=== PATIENT | female | born 1950 | race Caucasian/White ===

== ENCOUNTER 2020-01-08 14:39 | Emergency (ER) | payer MEDICARE ==
[2020-01-08] MEDS ORDERED: Acetaminophen 500 MG TAB ONE (15:04)
[2020-01-08] MEDS ORDERED: Ibuprofen 400 MG TAB ONE (15:04)
--- NOTE | 2020-01-08 15:26 | RAD ---
LEFT HAND THREE VIEWS: HISTORY: Fall with hand pain and swelling. COMPARISON: None. FINDINGS: Three views of the left hand show no evidence of acute fracture or dislocation. No degenerative parr es are seen. Severe dorsal soft tissue swelling is seen. IMPRESSION: No evidence of acute osseous abnormality. POS: C
== END 2020-01-08 15:25 | disposition home or self-care (01) ==
LOC: MADERS 14:39
DX: S60.222A Contusion of left hand, initial encounter (principal); W01.198A Fall on same level from slipping, tripping and stumbling with subsequent striking against other object, initial encounter

== ENCOUNTER 2022-02-09 13:57 | Emergency (ER) | payer MEDICARE ==
[2022-02-09] MEDS ORDERED: Ciprofloxacin 500 MG TAB ONE (15:32)
== END 2022-02-09 15:58 | disposition home or self-care (01) ==
LOC: MADERS 13:57
DX: H70.91 Unspecified mastoiditis, right ear (principal); I10 Essential (primary) hypertension; R42 Dizziness and giddiness; E03.9 Hypothyroidism, unspecified; Z79.890 Hormone replacement therapy
CPT/HCPCS: 70450; 70486

== ENCOUNTER 2023-10-01 12:09 | Emergency (ER) | payer MEDICARE ==
[~2023-10-01 12:09] MED LIST: Sodium Chloride 0.9% 100 ML BAG ONE
[2023-10-01] MEDS ORDERED: Metoprolol Tartrate 5 MG/5 ML VIAL ONE (12:25)
[2023-10-01 12:45] LABS: Hematocrit 42.8 % (36.0-47.0); Hemoglobin 13.3 g/dL (12.0-16.0); Mean Corpuscular HGB CONC 31.1 g/dL (32.0-36.0); Mean Corpuscular Hemoglobin 29.1 pg (27.0-31.0); Mean Corpuscular Volume 93.5 fl (78.0-98.0); Mean Platelet Volume 13.8 fL (7.4-10.4); Platelet Count 209 10x3/uL (130-400); RBC Distribution Width 13.4 % (11.5-14.5); Red Blood Cell (RBC) Count 4.58 mill/uL (4.20-5.40); White Blood Cell (WBC) Count 8.5 10x3/uL (4.8-10.8)
[2023-10-01 12:53] LABS: INR-International Normal Ratio 1.1
[2023-10-01 12:54] LABS: Band 1 % (5-11); Eosinophils 1 % (0-10); Lymphocytes 24 % (21-51); MDiff Complete? YES; Manual Diff?? YES; Monocytes 8 % (0-10); Neutrophil 66 % (42-75)
[2023-10-01 12:55] LABS: Platelet Adequacy Comment Appears Adequate; RBC Morph Comment Within Normal Limits
[2023-10-01 12:58] LABS: ALT (SGPT) 13 U/L (8-55); AST (SGOT) 24 U/L (5-34); Albumin 3.8 g/dL (3.4-4.8); Alkaline Phosphatase 78 U/L (40-110); Anion Gap 20 mmol/L (10-20); BUN (Urea Nitrogen) 21 mg/dL (9.8-20.1); Bilirubin, Total 1.2 mg/dL (0.2-1.2); Calc. Creatinine Clearance 0 mL/min (70-130); Calcium 8.9 mg/dL (7.8-10.44); Carbon Dioxide 20 mmol/L (23-31); Chloride 104 mmol/L (98-107); Estimated GFR 20; Globulin 2.5 g/dL (2.4-3.5); Glucose 110 mg/dL (83-110); Magnesium 1.6 mg/dL (1.6-2.6); Protein, Total 6.3 g/dL (5.8-8.1); Sodium 141 mmol/L (136-145)
[2023-10-01 13:00] LABS: Troponin I 0.017 ng/mL (< 0.028)
[2023-10-01] MEDS ORDERED: dilTIAZem 25 MG/5 ML VIAL ONE (13:20)
[2023-10-01] MEDS ORDERED: dilTIAZem 125 MG/25 ML SDV ONE (14:52)
[2023-10-01] MEDS ORDERED: Heparin 25,000 units/D5W 500 ML ONE (15:34)
[2023-10-01] MEDS ORDERED: Furosemide 40 MG/4 ML VIAL ONE ×2 (15:34→15:56)
== END 2023-10-01 16:51 | disposition short-term general hospital (02) ==
LOC: MADERS 12:09
DX: I48.91 Unspecified atrial fibrillation (principal); N17.9 Acute kidney failure, unspecified; I50.9 Heart failure, unspecified; E03.9 Hypothyroidism, unspecified; Z79.899 Other long term (current) drug therapy
CPT/HCPCS: 71045; 80053; 83735; 83880; 84484; 85025; 85610; 85730; 93005; 94760; 96365; 96366; 96375; 96376; J1644; J1940